=== PATIENT | female | born 1980 ===

== ENCOUNTER 2017-06-15 10:25 | Emergency (ER) | payer MEDICAID ==
[2017-06-15 10:34] VITALS: BP 137/76
--- NOTE | 2017-06-15 12:37 | Emergency Department Report ---
ED General Adult HPI - General Chief complaint: Back Pain/Injury Stated complaint: CP/BACK PAIN Time Seen by Provider: 06/15/17 12:32 Source: patient Mode of arrival: Ambulatory Limitations: No Limitations - History of Present Illness Initial comments: Patient reports left shoulder pain that started yesterday. Reports pain on movement. Symptoms improved with rest. Denies trauma. Denies heavy lifting. Reports previous episode treated with muscle spasms. Patient reports she has history of Crohn's disease recently stopped taking Humira. Denies fever dyspnea on exertion and lower extremity edema. Denies history of PE DVT. Denies chest pain. Denies pleuritic chest pain. -: days(s) (1) Location: upper extremity (left shoulder with movement) Radiation: non-radiation Severity scale (0 -10): 2 Quality: aching Consistency: intermittent Improves with: rest Worsens with: movement Associated Symptoms: denies other symptoms Treatments Prior to Arrival: NSAID - Related Data Previous Rx's Medication Instructions Recorded Last Taken Type Ciprofloxacin [Ciprofloxacin ORAL 500 mg PO Q12H #14 ml 01/12/14 Unknown Rx LIQ] Ondansetron [Zofran Odt] 4 mg PO Q6H #10 tab.rapdis 01/12/14 Unknown Rx metroNIDAZOLE [Flagyl] 500 mg PO BID #14 tablet 01/12/14 Unknown Rx traMADol [Ultram 50 MG tab] 50 mg PO Q4HR PRN #10 tablet 01/12/14 Unknown Rx Ibuprofen [Motrin] 600 mg PO Q8H PRN #20 tablet 06/15/17 Unknown Rx methOCARBAMOL [Robaxin TAB] 500 mg PO BID PRN #14 tab 06/15/17 Unknown Rx Allergies Allergy/AdvReac Type Severity Reaction Status Date / Time No Known Allergies Allergy Verified 06/15/17 10:32 ED Review of Systems ROS: Stated complaint: CP/BACK PAIN Other details as noted in HPI Other: GENERAL: No weight change, fatigue, weakness, fever, chills, or night sweats SKIN: No changes in skin or hair, no itching, no rashes, no jaundice HEAD: No trauma, headache, or visual changes CARDIAC: No new murmur, chest pain, palpitations, dyspnea on exertion, orthopnea , PND, or edema RESPIRATORY: No shortness of breath, wheeze, cough, sputum production, hemoptysis, pneumonia, asthma, bronchitis, or emphysema GI: No change in appetite, nausea, vomiting, dysphagia, change in bowel frequency, diarrhea, constipation, bleeding, hematemesis, melena, hematochezia, or abdominal pain URINARY: No frequency, urgency, polyuria, dysuria, hematuria, or incontinence MUSCULOSKELETAL: Left shoulder pain. decrease in range of motion . No muscle weakness,redness, swelling NEUROLOGIC: No loss of sensation, numbness, tingling, tremors, weakness, paralysis, seizures HEMATOLOGIC: No anemia, easy bruising, bleeding, petechiae, or purpura ED Past Medical Hx - Past Medical History Hx Psychiatric Treatment: Yes (bipolar) Additional medical history: crohns - Surgical History Past Surgical History?: No - Social History Smoking Status: Current Some Day Smoker Substance Use Type: None - Medications Home Medications: Home Medications Medication Instructions Recorded Confirmed Last Taken Type Ciprofloxacin [Ciprofloxacin ORAL 500 mg PO Q12H #14 ml 01/12/14 Unknown Rx LIQ] Ondansetron [Zofran Odt] 4 mg PO Q6H #10 tab.rapdis 01/12/14 Unknown Rx metroNIDAZOLE [Flagyl] 500 mg PO BID #14 tablet 01/12/14 Unknown Rx traMADol [Ultram 50 MG tab] 50 mg PO Q4HR PRN #10 tablet 01/12/14 Unknown Rx Ibuprofen [Motrin] 600 mg PO Q8H PRN #20 tablet 06/15/17 Unknown Rx methOCARBAMOL [Robaxin TAB] 500 mg PO BID PRN #14 tab 06/15/17 Unknown Rx ED Physical Exam - General Limitations: No Limitations - Other Other exam information: GENERAL: Patient in no acute distress. Patient sleeping in the patient room upon entry. HEAD: Normocephalic, atraumatic EYES: PERRLA, EOM intact, no scleral icterus, visual grijalva and acuity wnl HEART: Regular rate and rhythm, no murmur, S1-S2 are auscultated, pulses are symmetric LUNGS: bilateral breath sounds. No wheezing, rales, rhonchi ABDOMEN: Normal bowel sounds, no tenderness, no rebound, no guarding, no masses , no CVA tenderness MUSCULOSKELETAL: Left shoulder active decreased ROM due to pain. Normal joint range of motion passive, no redness, no swelling, no tenderness NEUROLOGIC: GCS 15, Alert and Oriented x3, Cranial nerves intact, normal sensation, normal strength, normal gait, no cerebellar deficit SKIN: Skin is warm and dry, no wounds, no rashes ED Course Vital Signs 06/15/17 10:32 Temperature 98.8 F Pulse Rate 86 Respiratory 20 Rate Blood Pressure 137/76 O2 Sat by Pulse 98 Oximetry ED Medical Decision Making - Medical Decision Making Patient comfortable. Plan discharge with outpatient follow up. Patient agrees with plan and will return if symptoms worsen. Critical care attestation.: If time is entered above; I have spent that time in minutes in the direct care of this critically ill patient, excluding procedure time. ED Disposition Clinical Impression: Musculoskeletal pain Disposition: - TO HOME OR SELFCARE Is pt being admited?: No Condition: Stable Instructions: Musculoskeletal Pain (ED) Prescriptions: Ibuprofen [Motrin] 600 mg PO Q8H PRN #20 tablet PRN Reason: Pain methOCARBAMOL [Robaxin TAB] 500 mg PO BID PRN #14 tab PRN Reason: Spasms Referrals: PRIMARY CARE, [Primary Care Provider] - 3-5 Days Time of Disposition: 12:38
== END 2017-06-15 14:51 | disposition home or self-care (01) ==
LOC: ED 10:25
DX: M25.512 Pain in left shoulder (principal); F17.200 Nicotine dependence, unspecified, uncomplicated
CPT/HCPCS: 99282